=== PATIENT | female | born 1975 | race Two or more races ===

== ENCOUNTER 2017-01-02 10:35 | Emergency (ER) | payer MEDICAID ==
[2017-01-02] MEDS ORDERED: ASPIRIN 81 MG CHEWABLE TAB PO ONE (10:42)
[2017-01-02] MEDS ORDERED: ASPIRIN 81 MG CHEWABLE TAB ONE (10:44)
--- NOTE | 2017-01-02 10:46 | UCPHY ---
H & P Time Seen by Provider: 01/02/17 10:44 Patient Type: Established HPI/ROS: 41-year-old female presents complaining of left upper chest pain that began approximately 5 hours ago. She states it is a very dull pain and does not travel anywhere. She denies nausea vomiting diarrhea. She denies shortness of breath she denies recent illness or cough. Review of systems As per HPI General no fever no chills no weakness HEENT no eye pain no eye discharge. No eye redness, no sore throat Respiratory no cough, no shortness of breath Cardiac positive chest pain, no peripheral edema GI no abdominal pain, no diarrhea, no constipation, no nausea, no vomiting no flank pain, no hematuria, no dysuria Musculoskeletal no myalgias, no joint pain Heme no easy bruising, no easy bleeding Endo no polyuria, no polydipsia Skin no rashes, no pruritus Neuro no syncope, no dizziness, no headaches Psych is no suicidal ideation, no homicidal ideation Past Medical/Surgical History: Noncontributory Social History: No alcohol, no drugs Smoking Status: Never smoked Physical Exam: 41-year-old female HEENT atraumatic normocephalic, extraocular muscles intact, anicteric Oropharynx negative for erythema negative exudate, tolerating her own secretions Neck supple no meningismus Chest-tenderness to palpation left parasternal area, no ecchymosis no crepitus Lungs clear to auscultation bilaterally Heart regular rate and rhythm without murmur rub or gallop Abdomen nondistended normoactive bowel sounds soft nontender Back no CVA tenderness, no step-offs, no spinal tenderness Extremities no cyanosis clubbing or edema Neuro alert and oriented, no focal deficits Constitutional: Initial Vital Signs Temperature (C) 36.7 C 01/02/17 10:45 Heart Rate 82 01/02/17 10:45 Respiratory Rate 16 01/02/17 10:45 Blood Pressure 147/90 H 01/02/17 10:45 O2 Sat (%) 93 01/02/17 10:45 O2 Delivery Mode Room Air Allergies/Adverse Reactions: No Known Allergies Allergy (Verified 01/02/17 10:46) Home Medications: Medication Instructions Recorded No Medications [NO HOME 12/31/11 MEDICATIONS] Medical Decision Making - Diagnostics EKG Interpretation: EKG normal sinus rhythm Imaging: Chest x-ray was shallow inspiration, no effusion no consolidation ED Course/Re-evaluation: Patient seen and evaluated for left-sided chest pain of several hours duration. Differential diagnosis considered Pneumonia, bronchitis, coronary artery disease, pulmonary embolus, costochondritis EKG normal sinus rhythm Chest x-ray shallow inspiration no effusion no consolidation Lab sent Troponin negative D-dimer negative Patient initially given baby aspirin on arrival. Later she was given Toradol 30 mg IV push. Her pain was relieved. Impression Left musculoskeletal chest wall pain Plan Follow-up with PCP Discharge home - Data Points Laboratory Results: Laboratory Results 01/02/17 11:00 01/02/17 11:00 Medications Given: Discontinued Medications Aspirin (Aspirin) 324 mg PO EDNOW ONE Stop: 01/02/17 10:43 Last Admin: 01/02/17 10:43 Dose: 324 mg Ketorolac Tromethamine (Toradol) 30 mg IVP EDNOW ONE Stop: 01/02/17 11:36 Last Admin: 01/02/17 11:45 Dose: 30 mg Departure - Departure Disposition: Home, Routine, Self-Care Clinical Impression: Atypical chest pain Condition: Good Instructions: Chest Pain (ED), Chest Wall Pain (ED) Additional Instructions: May take ibuprofen or acetaminophen every 6 hours as needed for pain. If you take ibuprofen be sure that you have food in her stomach. Follow-up with the primary care physician. Referrals: Hali Tavares PA [Primary Care Provider] - As per Instructions - PQRS PQRS Measurement: na
[2017-01-02 10:48] VITALS: RESP 16; O2SAT 93
--- NOTE | 2017-01-02 10:51 | CPEKG ---
Heart Rate: 80 RR Interval: 750 P-R Interval: 136 QRSD Interval: 82 QT Interval: 384 QTC Interval: 443 P Roberts: 44 QRS Roberts: -22 T Wave Roberts: 22 EKG Severity - OTHERWISE NORMAL ECG - EKG Impression: SINUS RHYTHM EKG Impression: BORDERLINE LEFT AXIS DEVIATION Electronically Signed By: Hermann Orourke 03-Jan-2017 08:56:04
[2017-01-02 11:13] LABS: % IMMATURE GRANULYOCYTES 0.3 % (0.0-1.1); ABSOLUTE IMMATURE GRANULOCYTES 0.02 10^3/uL (0.00-0.10); ADD DIFF? NO; ADD MORPH? NO; ADD SCAN? NO; ATYPICAL LYMPHOCYTE FLAG 10 (0-99); FRAGMENT RBC FLAG 0 (0-99); HEMATOCRIT 40.6 % (38.0-47.0); LEFT SHIFT FLG 0 (0-99); LIPEMIA HEMOLYSIS FLAG 90 (0-99); MEAN CELL HEMOGLOBIN 29.5 pg (27.9-34.1); MEAN CELL HEMOGLOBIN CONCENTR. 34.5 g/dL (32.4-36.7); MEAN CELL VOLUME 85.7 fL (81.5-99.8); MEAN PLATELET VOLUME 9.9 fL (8.7-11.7); PLATELET CLUMPS FLAG 10 (0-99); PLATELET COUNT 293 10^3/uL (150-400); RED BLOOD CELL COUNT 4.74 10^6/uL (4.18-5.33); RED CELL DISTRIBUTION WIDTH 13.1 % (11.5-15.2)
[2017-01-02 11:24] LABS: INR 0.98 (0.83-1.16); PROTIME(PATIENT) 12.7 SEC (12.0-15.0)
[2017-01-02 11:27] LABS: ALANINE AMINOTRANSFERASE 39 IU/L (9-52); ALBUMIN 3.9 g/dL (3.5-5.0); ALKALINE PHOSPHATASE 68 IU/L (38-126); ANION GAP 11 mEq/L (8-16); ASPARTATE AMINOTRANSFERASE 24 IU/L (14-46); BILIRUBIN,TOTAL 0.6 mg/dL (0.1-1.4); CALCIUM 9.1 mg/dL (8.5-10.4); CARBON DIOXIDE 24 mEq/l (22-31); CHLORIDE 105 mEq/L (97-110); CREATININE 0.5 mg/dL (0.6-1.0); GLOMERULAR FILTRATION RATE > 60; GLUCOSE 97 mg/dL (70-100); POTASSIUM 4.3 mEq/L (3.5-5.2); SODIUM 140 mEq/L (134-144); TOTAL PROTEIN 7.2 g/dL (6.3-8.2)
[2017-01-02] MEDS ORDERED: KETOROLAC 30 MG/1 ML SDV IVP ONE (11:35)
[2017-01-02 11:39] LABS: TROPONIN I < 0.012 ng/mL (0-0.034)
[2017-01-02 12:26] VITALS: BP 107/63; PULSE 69; TEMP 97.7
== END 2017-01-02 12:25 | disposition home or self-care (01) ==
LOC: CED 10:35
DX: R07.89 Other chest pain (principal)
CPT/HCPCS: 71020-PO; 80053-PO; 84484-PO; 85025-PO; 85378-PO; 85610-PO; 85730-PO; 93010-PO; 96374-PO; 99215-PO; G0463-PO; J1885

== ENCOUNTER 2018-10-12 10:32 | Emergency (ER) | payer MEDICAID ==
[2018-10-12 11:01] VITALS: BP 111/67
[2018-10-12] MEDS ORDERED: IBUPROFEN 800 MG TAB PO ONE (11:40)
[2018-10-12] MEDS ORDERED: traMADol 50 MG TAB PO ONE (11:41)
[2018-10-12] MEDS ORDERED: AMOXICILLIN/CLAVULANATE POT 875/125 MG TAB PO ONE (11:41)
[2018-10-12] MEDS ORDERED: ACETAMINOPHEN 500 MG TAB PO ONE (11:41)
--- NOTE | 2018-10-12 11:44 | EDPHY ---
H & P Time Seen by Provider: 10/12/18 11:28 HPI/ROS: This patient complains of left lower tooth pain at site of prior feeling. The pain is 8/10 intensity present for the past 24 hr slightly improved with over- the-counter meds with no other exacerbating factors. She has had no other associated symptoms. She came in by private vehicle ROS: Constitutional: No fevers HEENT: No facial swelling GI: No nausea vomiting Integumentary: No rash 5 point review of symptoms is performed and otherwise negative with exception of pertinent positives and negatives listed in HPI and ROS Smoking Status: Never smoked Physical Exam: Physical Exam Vital signs are normal. General: No acute distress HEENT: Atraumatic. Oropharynx: Patient has feeling in the left lower premolar with tenderness to that tooth percussion that reproduces her symptoms. She has no submental swelling or other significant facial swelling associated with this. Eyes: Pupils equal and react to light. Extraocular motions are intact. Lungs: No respiratory distress. Cardiac: Brisk capillary refill is intact throughout. Skin: No rash or pallor. Neuro: Alert and oriented x3 with no sensorimotor deficits. Initial differential diagnosis: Periodontitis, dental caries, apical abscess Constitutional: Initial Vital Signs Temperature (C) 36.8 C 10/12/18 10:56 Heart Rate 67 10/12/18 10:56 Respiratory Rate 16 10/12/18 10:56 Blood Pressure 111/67 10/12/18 10:56 O2 Sat (%) 93 10/12/18 10:56 O2 Delivery Mode Room Air Allergies/Adverse Reactions: No Known Allergies Allergy (Verified 01/02/17 10:46) Home Medications: Medication Instructions Recorded No Medications [NO HOME 12/31/11 MEDICATIONS] Amoxicillin/Clavulanate Pot 875 mg PO BID #14 tab 10/12/18 [Augmentin 875 MG TAB (*)] traMADol [Ultram 50 mg (*)] 50 - 100 mg PO Q4 PRN #20 tab 10/12/18 MDM/Departure - MDM Medications Given: Discontinued Medications Acetaminophen (Tylenol) 1,000 mg PO EDNOW ONE Stop: 10/12/18 11:42 Last Admin: 10/12/18 11:50 Dose: 1,000 mg Amoxicillin/Clavulanate Potassium (Augmentin 875mg) 875 mg PO EDNOW ONE PRN Reason: Protocol Stop: 10/12/18 11:42 Last Admin: 10/12/18 11:49 Dose: 875 mg Ibuprofen (Motrin) 800 mg PO EDNOW ONE Stop: 10/12/18 11:41 Last Admin: 10/12/18 11:50 Dose: 800 mg Tramadol HCl (Ultram) 100 mg PO EDNOW ONE Stop: 10/12/18 11:42 Last Admin: 10/12/18 11:50 Dose: 100 mg ED Course/Re-evaluation: Discussion: Dental pain likely from periodontitis in a tooth prior filling. Plan: Augmentin antibiotic, ibuprofen, tramadol, follow up with dentist. Patient her stands the need to return emergency department should she develop fevers, vomiting or other concerns - Depart Disposition: Home, Routine, Self-Care Clinical Impression: Pain, dental Condition: Good Instructions: Toothache (ED) Additional Instructions: Diagnosis: Dental pain Plan: Augmentin antibiotic Ibuprofen and Tylenol Tramadol in addition for pain control as needed. No driving, alcohol work on tramadol Close follow-up with her dentist Return for any significant worsening despite the treatment plan Prescriptions: Amoxicillin/Clavulanate Pot [Augmentin 875 MG TAB (*)] 875 mg PO BID #14 tab traMADol [Ultram 50 mg (*)] 50 - 100 mg PO Q4 PRN #20 tab PRN Reason: breakthrough pain Referrals: Hali Tavares PA [Primary Care Provider] - As per Instructions
== END 2018-10-12 12:00 | disposition home or self-care (01) ==
LOC: CED 10:32
DX: K08.89 Other specified disorders of teeth and supporting structures (principal)